=== PATIENT | female | born 1970 ===

== ENCOUNTER 2018-03-04 10:16 | Emergency (ER) | payer OTHER ==
[~2018-03-04] VITALS: Ht 160 cm; Wt 83.9 kg
[2018-03-04] MEDS ORDERED: GABA600 PO (10:21)
[2018-03-04] MEDS ORDERED: ERYT1OIN LEFTEYE (10:45)
[2018-03-04] MEDS ORDERED: IBUP600 PO (10:54)
== END 2018-03-04 11:08 | disposition home or self-care (01) ==
LOC: ER 10:16
DX: H00.014 Hordeolum externum left upper eyelid (principal); Z79.899 Other long term (current) drug therapy; F17.210 Nicotine dependence, cigarettes, uncomplicated
CPT/HCPCS: J0696; J1885